=== PATIENT | female | born 2000 | race Caucasian/White ===

== ENCOUNTER → 2022-04-15 | Outpatient (REF) | payer OTHER | LOC: M PLALAB 14:18 | PROVIDERS: ATTEND Advanced Practice Midwife | DX: Z12.4 Encounter for screening for malignant neoplasm of cervix (principal) ==

== ENCOUNTER → 2022-05-03 | Outpatient (REF) | payer OTHER | LOC: M PLALAB 14:11 | PROVIDERS: ATTEND Nurse Practitioner Family | DX: N39.0 Urinary tract infection, site not specified (principal) | CPT/HCPCS: 81002; 87086; G0463 ==

== ENCOUNTER → 2023-04-28 | Outpatient (REF) | payer OTHER | LOC: M PLALAB 09:17 | PROVIDERS: ATTEND Advanced Practice Midwife | DX: Z12.4 Encounter for screening for malignant neoplasm of cervix (principal) | CPT/HCPCS: 87624; G0123; G0463 ==